=== PATIENT | female | born 1995 | race Caucasian/White ===

== ENCOUNTER 2017-11-14 13:15 | Emergency (ER) | payer SELFPAY ==
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
[2017-11-14] MEDS ORDERED: AZITHROMYCIN 250 MG TABLET PO ONE ×2 (14:14→19:00)
[2017-11-14] MEDS ORDERED: CEFTRIAXONE INJ 250 MG VIAL IM ONE ×2 (14:15→19:00)
[2017-11-14 17:07] LABS: T.VAGINALIS (WET MOUNT) NO TRICHOMONAS SEEN; WBCS (WET MOUNT) RARE WBCS SEEN; YEAST (WET MOUNT) NO YEAST SEEN
[2017-11-14 17:08] LABS: APPEARANCE,URINE SLIGHTLY-CLOUDY; BILIRUBIN,URINE NEGATIVE (NEGATIVE); COLOR,URINE YELLOW; GLUCOSE, URINE NEGATIVE (NEGATIVE); KETONES,URINE NEGATIVE (NEGATIVE); LEUKOCYTE ESTERASE,URINE NEGATIVE (NEGATIVE); NITRITE,URINE NEGATIVE (NEGATIVE); PROTEIN,URINE NEGATIVE (NEGATIVE); UROBILINOGEN,URINE NEGATIVE mg/dL (<2.0)
[2017-11-14 17:21] LABS: URINE AMPHETAMINES SCREEN NEGATIVE; URINE BARBITURATES SCREEN NEGATIVE; URINE BENZODIAZEPINES SCREEN NEGATIVE; URINE COCAINE SCREEN NEGATIVE; URINE MARIJUANA (THC) SCREEN UNCONFIRMED POSITIVE; URINE METHADONE SCREEN NEGATIVE; URINE PHENCYCLIDINE SCREEN NEGATIVE
[2017-11-14] MEDS ORDERED: LEVONORGESTREL 1.5 MG TABLET (1 TAB/ER-USE) PO ONE (17:51)
[2017-11-14] MEDS ORDERED: LIDOCAINE 1% INJ-PF (10 MG/ML) 30 ML SDV INJ ONE (17:54)
[2017-11-14 18:32] VITALS: BP 120/78
[2017-11-14 20:11] LABS: CHLAM PCR NOT DETECTED (NOT DETECT); GON PCR NOT DETECTED (NOT DETECT)
== END 2017-11-14 19:15 | disposition home or self-care (01) ==
LOC: ER 13:15
DX: T74.21XA Adult sexual abuse, confirmed, initial encounter (principal); S30.23XA Contusion of vagina and vulva, initial encounter; Y07.59 Other non-family member, perpetrator of maltreatment and neglect; Z11.4 Encounter for screening for human immunodeficiency virus [HIV]; Z88.2 Allergy status to sulfonamides
CPT/HCPCS: 99285; 96372; 36415; 87210; 81025; 81001; 80307; 87491; 87591; 86701; 86702; A9270; J3490; J0696